=== PATIENT | female | born 1975 | race Caucasian/White ===

== ENCOUNTER 2016-09-03 22:01 | Emergency (ER) | payer OTHER ==
[~2016-09-03] VITALS: Ht 177.8 cm; Wt 63.1 kg
[~2016-09-03 22:01] MED LIST: ADDERALL XR 3030 MG PO; ADDERALL30 MG PO; AMBIEN10 M1 PO; AMPHETAMINE SALT5 MG PO; BUSPIRONE HCL15 MG PO; DICLOFENAC SODI75 MG PO; DIFLUCAN150 MG PO; FLEXERIL10 MG PO; HYDROCODON-ACE1 EAC7 PO; LEVOFLOXACIN750 MG PO; LEXAPRO10 MG; LOVENOX60 MG/0.6 SC; LYRICA75 MG PO; MED FOR REFLUX; MORPHINE SULFAT15 MG PO; MOTRIN800 MG; MOTRIN800 MG PO; NEURONTIN800 MG; NICOTINE PATCH1 EAC2 TD; OXYCODONE HCL5 MG PO; PEN-VEE K,VEET500 MG PO; PERCOCET 5/31 TABLET PO; PROTONIX40 MG PO; ROXICODONE5 MG PO; SYMBICORT60 INHALAT IH; TRAMADOL HCL50 MG PO; VICODIN,LORT1 TABLET; WARFARIN SODIU7.5 MG PO; WARFARIN SODIUM5 MG PO; XANAX2 MG; ZANTAC 7575 MG
[2016-09-04 01:01] LABS: INTER. NORMALIZED RATIO 1.3; PTT 32.1 (25-32)
[2016-09-04 01:15] LABS: EOSINOPHIL (%) 1.8 % (0-5); EOSINOPHIL COUNT 0.2 K/uL (0-0.3); HEMATOCRIT 39.4 % (36.0-46.0); IMMATURE GRANULOCYTE (%) 0.2 % (0.0-0.7); MCH 30.8 PG (29.0-34.0); MCHC 34.3 G/DL (30.0-36.0); MEAN PLAT.VOLUME 10.2 uM^3 (9.5-12.4); MONOCYTE (%) 8.5 % (3-12); MONOCYTE COUNT 0.8 K/uL (0-0.8); NEUTROPHIL (%) 57.3 % (45-76); NEUTROPHIL COUNT 5.4 K/uL (1.8-6.4); NRBC (%) 0.2 /100 WBC (0-0); PLATELET COUNT 297 K/uL (156-360); RBC DIS.WIDTH-CV 13.3 % (11.8-14.6); RED BLOOD COUNT 4.38 M/uL (3.80-5.20); WHITE BLOOD COUNT 9.5 K/uL (4.1-10.2)
[2016-09-04 01:16] LABS: CHLORIDE 106 mEq/L (99-109); POTASSIUM 3.5 mEq/L (3.7-5.4); SODIUM 141 mEq/L (136-147)
[2016-09-04 01:18] LABS: GLUCOSE 89 mg/dL (70-99)
[2016-09-04 01:19] LABS: ANION GAP 6 MEQ/L (2-14)
[2016-09-04 01:22] LABS: GFR ESTIMATE (CALCULATED) > 59 mL/min/
[2016-09-04 01:23] LABS: UREA NITROGEN (BUN) 12 mg/dL (9-23)
[2016-09-04] MEDS ORDERED: TRAMADOL HCL50 MG PO (02:50)
[2016-09-04 03:32] VITALS: BP 119/73
== END 2016-09-04 03:32 | disposition home or self-care (01) ==
LOC: EME 22:01
PROC: 2W3QX1Z Immobilization of Right Lower Leg using Splint (ICD-10-PCS; principal; 2016-09-04)
DX: S93.401A Sprain of unspecified ligament of right ankle, initial encounter (principal); S80.211A Abrasion, right knee, initial encounter; S80.212A Abrasion, left knee, initial encounter; S90.811A Abrasion, right foot, initial encounter; S90.511A Abrasion, right ankle, initial encounter; M54.2 Cervicalgia; V29.9XXA Motorcycle rider (driver) (passenger) injured in unspecified traffic accident, initial encounter; Z86.718 Personal history of other venous thrombosis and embolism; Z86.711 Personal history of pulmonary embolism; Z79.01 Long term (current) use of anticoagulants; G89.29 Other chronic pain; Z79.891 Long term (current) use of opiate analgesic; F17.200 Nicotine dependence, unspecified, uncomplicated
CPT/HCPCS: 73030; 73610; 73630; 80048; 85025; 85610; 85730; 93971; 99281; 99284; J3010

== ENCOUNTER 2016-09-10 16:50 | Emergency (ER) | payer OTHER ==
[~2016-09-10] VITALS: Ht 177.8 cm; Wt 68.1 kg
[2016-09-10] MEDS ORDERED: ROXICODONE5 MG PO (19:46)
[2016-09-10] MEDS ORDERED: CLEOCIN300 MG PO (19:46)
[2016-09-10 22:46] VITALS: BP 115/78
== END 2016-09-10 22:47 | disposition home or self-care (01) ==
LOC: EME 16:50
DX: S91.001D Unspecified open wound, right ankle, subsequent encounter (principal); L03.115 Cellulitis of right lower limb; S80.812D Abrasion, left lower leg, subsequent encounter; S80.811D Abrasion, right lower leg, subsequent encounter; M79.602 Pain in left arm; V29.9XXD Motorcycle rider (driver) (passenger) injured in unspecified traffic accident, subsequent encounter; Z86.711 Personal history of pulmonary embolism; Z79.01 Long term (current) use of anticoagulants; G89.29 Other chronic pain; F17.200 Nicotine dependence, unspecified, uncomplicated
CPT/HCPCS: 93971; 99281; 99284; J3010

== ENCOUNTER 2016-10-22 17:54 | Emergency (ER) | payer OTHER ==
[~2016-10-22] VITALS: Ht 177.8 cm; Wt 61.2 kg
[~2016-10-22 17:54] MED LIST changes: +CLEOCIN300 MG PO
[2016-10-22 20:57] VITALS: BP 139/84
== END 2016-10-22 21:20 | disposition home or self-care (01) ==
LOC: EME 17:54
DX: M54.2 Cervicalgia (principal); R51 Headache; W19.XXXA Unspecified fall, initial encounter; Z91.81 History of falling; F14.10 Cocaine abuse, uncomplicated; F11.10 Opioid abuse, uncomplicated; Z86.711 Personal history of pulmonary embolism; Z86.718 Personal history of other venous thrombosis and embolism; Z79.01 Long term (current) use of anticoagulants; F17.200 Nicotine dependence, unspecified, uncomplicated
CPT/HCPCS: 70450; 71020; 93005; 99281; 99285